=== PATIENT | male | born 1985 | race Caucasian/White ===

== ENCOUNTER 2017-04-09 10:37 | Day surgery (SDC) | payer OTHER ==
[2017-04-09] MEDS: NS 1,000 ML IV (10:48)
== END 2017-04-09 11:45 | disposition home or self-care (01) ==
LOC: M OPP 10:37
DX: R10.13 Epigastric pain (principal); R10.816 Epigastric abdominal tenderness; R12 Heartburn; K92.0 Hematemesis; K22.8 Other specified diseases of esophagus; K21.9 Gastro-esophageal reflux disease without esophagitis; R51 Headache; Z79.899 Other long term (current) drug therapy; Z87.891 Personal history of nicotine dependence
CPT/HCPCS: 43239